=== PATIENT | female | born 2000 | race Caucasian/White ===

== ENCOUNTER 2024-10-12 13:55 | Outpatient (RCR) | payer OTHER, SELFPAY | END 2024-10-27 23:59 | disposition home or self-care (01) | LOC: SPT 13:55 | PROVIDERS: Visit Provider Family Medicine | DX: N39.42 Incontinence without sensory awareness (principal) | CPT/HCPCS: 97110; 97161; 97530 ==

== ENCOUNTER 2024-10-28 06:00 | Outpatient (RCR) | payer OTHER, SELFPAY | END 2024-11-27 23:59 | disposition home or self-care (01) | LOC: SPT 06:00 | PROVIDERS: Visit Provider Family Medicine | DX: N39.42 Incontinence without sensory awareness (principal) | CPT/HCPCS: 97530 ==

== ENCOUNTER 2024-11-28 06:30 | Outpatient (RCR) | payer OTHER, SELFPAY | END 2024-12-06 10:04 | disposition home or self-care (01) | LOC: SPT 06:30 | PROVIDERS: Visit Provider Family Medicine | DX: N39.42 Incontinence without sensory awareness (principal) | CPT/HCPCS: 97110 ==